=== PATIENT | male | born 1975 | race Caucasian/White ===

== ENCOUNTER 2016-11-29 12:06 | Day surgery (SDC) ==
[2016-11-29] MEDS ORDERED: LR 1,000 ML ONE ×3 (12:49→17:10)
[2016-11-29] MEDS ORDERED: KEFZOL 1 GM/D5W 50 ML ONE (12:49)
[2016-11-29 12:58] LABS: HEMOGLOBIN 13.6 g/dL (14.0-18.0); MCH 31.7 PG (27-31); MCHC 33.2 g/dL (33-37); MCV 95.6 FL (81-99); MPV 8.8 FL (7.4-10.4); RBC 4.29 XMIL (4.7-6.1)
[2016-11-29 13:15] LABS: AGAP 11; BUN 10 mg/dL (8-22); CALCIUM 8.6 mg/dL (8.8-10.2); CHLORIDE 102 mmol/L (98-107); COSMO 276; POTASSIUM 4.2 mmol/L (3.5-5.1); SODIUM 139 mmol/L (136-145); TCO2 26 mmol/L (25-35); URIC ACID 6.6 mg/dL (3.4-7.0)
[2016-11-29] MEDS ORDERED: ALBUTEROL NEB INH ONE (13:39)
[2016-11-29] MEDS ORDERED: REGLAN ONE (13:40)
[2016-11-29] MEDS ORDERED: PEPCID ONE (13:40)
[2016-11-29] MEDS ORDERED: ALBUTEROL NEB ONE (13:50)
[2016-11-29] MEDS ORDERED: DIPRIVAN 1% ONE (14:27)
[2016-11-29] MEDS ORDERED: DEMEROL ONE (14:28)
[2016-11-29] MEDS ORDERED: DEMEROL IV ONE (14:31)
[2016-11-29] MEDS ORDERED: MORPHINE ONE ×2 (15:44→16:01)
[2016-11-29] MEDS: PHENERGAN ONE ×2 (16:04→16:14)
--- NOTE | 2016-11-29 16:20 | OPERATIVE NOTE ---
PROCEDURE DATE: 11/29/2016 SURGEON: Kai Gillespie MD. PREOPERATIVE DIAGNOSES: 1. Left distal ureteral stones. 2. Left flank pain. POSTOPERATIVE DIAGNOSES: 1. Left distal ureteral stones. 2. Left flank pain. PROCEDURE PERFORMED: Cystoscopic exam, left ureteroscopy, laser lithotripsy of stone, basket extraction of fragments, placement of left double-J stent. ANESTHESIA: General via laryngeal mask. FINDINGS: Cystoscopic exam: Urethra - Greater than 21 [place] without stricture. Prostate - Mild hypertrophy of the lateral lobes, elevated bladder neck, length approximately 3.5 to 4 cm. Bladder - Normal ureteral orifices bilaterally. No papillary lesions. No trabeculations. No diverticula. Left ureteroscopy reveals a 6 mm distal stone and immediately behind that stone is an approximate 4 mm stone. Rectal exam reveals significant hemorrhoids and a prostate of 30-40 g, smooth, and symmetric. INDICATION FOR PROCEDURE: This 41-year-old male with history of renal lithiasis developed severe left flank pain. CT stone search revealed left distal ureteral stones with moderate hydronephrosis. DESCRIPTION OF PROCEDURE: After informed consent was obtained from the patient and him receiving IV antibiotics, he was taken the main OR cystoscopy room, placed in the supine position. General anesthesia via laryngeal mask was achieved. He was then placed in the low lithotomy position and prepped and draped in the usual sterile fashion for cystoscopic exam. A 21-[place] cystoscope was passed through the patient's urethra, prostate, and bladder with findings noted above. A 0.035 zip wire was passed through the cystoscope and into the ureter but the wire would not go past the stone. Multiple attempts were made the zip wire was removed. The cystoscope was removed. The 7- [place] Storz semi rigid ureteroscope was advanced through the patient's urethra, prostate, and into the bladder. A 0.035 Sensor wire was passed through the ureteroscope and into the ureter. The ureteroscope was advanced over the Sensor wire, up to where the stone was located. The Sensor wire was finally able to be manipulated past the stone and passed up into the kidney. The ureteroscope was removed leaving the Sensor wire in place. The ureteroscope was returned to the bladder and into the ureter. A 365 micron laser fiber was placed. The laser was set at 8 hertz and 8 becker and the stone was fragmented. A total of 140 joules were used to fragment the stone. A 4 wire Nitinol basket was placed and several passes were made to remove stone fragments that were sent to pathology. The ureteroscope was advanced up into the proximal ureter. No further large fragments or stones were visualized. The ureteroscope was removed. A 6-[place], 24 cm double-J stent was passed over the Sensor wire and up into the kidney. The renal end was verified by fluoroscopic exam, bladder end directly visualized. The bladder was drained. Cystoscope was removed. Stent removal string was securely taped to the penile shaft. Rectal exam was performed. He tolerated the procedure well. Estimated blood loss was 0. He was taken to the recovery room in good condition.
[2016-11-29] MEDS ORDERED: NORCO-10 ONE (17:06)
[2016-11-29] MEDS ORDERED: ZOFRAN ONE (17:09)
[2016-11-29] MEDS ORDERED: DECADRON ONE (17:10)
[2016-11-29] MEDS ORDERED: XYLOCAINE-MPF 2% ONE (17:10)
[2016-11-29] MEDS ORDERED: FLOMAX ONE (17:23)
[2016-11-29 17:53] VITALS: BP 134/80
--- NOTE | 2016-11-30 08:03 | Diag Imaging Result Document ---
PROCEDURE NAME: FLUROSCOPY CYSTO - 11/29/2016 14 FLUOROSCOPIC FILMS SUBMITTED FROM A PROCEDURE PERFORMED BY DR. VANEGAS: FINDINGS: Total dose is 3.64 mGy. Films show the placement of a wire within the left ureter. A catheter was placed over this wire and then the wire was removed. IMPRESSION: Left ureteral stent placed.
== END 2016-11-29 17:40 | disposition home or self-care (01) ==
LOC: OR 12:06
PROVIDERS: ATTEND Urology
DX: N13.2 Hydronephrosis with renal and ureteral calculous obstruction (principal); N40.0 Benign prostatic hyperplasia without lower urinary tract symptoms; K57.92 Diverticulitis of intestine, part unspecified, without perforation or abscess without bleeding; R10.9 Unspecified abdominal pain; Z87.442 Personal history of urinary calculi; K64.9 Unspecified hemorrhoids; M54.5 Low back pain; Z79.1 Long term (current) use of non-steroidal anti-inflammatories (NSAID); F17.210 Nicotine dependence, cigarettes, uncomplicated; Z83.3 Family history of diabetes mellitus; Z82.49 Family history of ischemic heart disease and other diseases of the circulatory system; Z79.899 Other long term (current) drug therapy
CPT/HCPCS: 76000; 80048; 82360; 84550; 85027; 88300; 94640; C2617; J0690; J1100; J2175; J2270; J2405; J2550; J7120